=== PATIENT | female | born 1965 | race Hispanic/Latino ===

== ENCOUNTER → 2018-06-27 | Day surgery (SDC) | payer OTHER ==
[~2018-06-27] MED LIST: ASPIRIN 325 MG TAB ONE; ASPIRIN 81 MG CHEW TAB PO ONE; CEFAZOLIN SOD 1 GM VIAL ONE; DEXAMETHASONE SOD PHOS INJ 4 MG/ML VIAL ONE; FENTANYL CITRATE/PF 100MCG/2 ML INJ ONE; HYDROCHLOROTHIA25 MG PO; HYDROMORPHONE 1MG/1ML INJ ONE; KETOROLAC TROMETHAMINE 30 MG/ML VIAL ONE; LABETALOL HCL 20 ML ONE; LIDOCAINE HCL 2% LOCAL INJ 5 ML SDV VIAL INJ ONE; MEPERIDINE HCL INJ 50 MG/ML INJ ONE; MIDAZOLAM HCL 2 MG/2 ML VIAL ONE; MORPHINE SULFATE 2 MG/ML SYR ONE; NITROGLYCERIN 0.4 MG SUBL ONE; ONDANSETRON HCL INJ 2 MG/ML VIAL ONE; PROPOFOL IV EMULSION 10 MG/ML 20 ML VIAL ONE; SEVOFLURANE INHAL SOLN 250 ML PEN BTL ONE
--- NOTE | 2018-06-27 15:11 | Operative Report ---
DATE OF PROCEDURE: June 27, 2018 DIRECTOR OF PHYSIOTHERAPY SERVICES: Tyshawn Sierra PA-C The patient was brought to the operating room for induction of anesthesia. Throughout this case, my PA's assistance was necessary for retraction of soft tissue and positioning of the extremity. This allows for efficient and technically successful execution of the operation and is considered medically necessary. PREOPERATIVE DIAGNOSIS: Right knee lateral meniscal tear. POSTOPERATIVE DIAGNOSIS: Right knee lateral meniscal tear. PROCEDURE: Right knee arthroscopy, partial lateral meniscectomy. INDICATIONS: The patient is a 52-year-old lady who has clinic signs and symptoms consistent with a lateral meniscal tear in her right knee. She has failed conservative management and would like to proceed with arthroscopic intervention. The risks and benefits have been explained. She states she understands and wishes to proceed. DESCRIPTION OF PROCEDURE: The patient was brought to the operating room and placed under general anesthetic. Her right lower extremity was prepped and draped in a sterile manner. A preoperative time out was performed. The extremity had been exsanguinated and a proximal tourniquet was inflated to 300 mmHg. Standard arthroscopy portals were established. The knee was insufflated with sterile saline and systematically inspected. The patellofemoral groove and suprapatellar pouch were unremarkable. The medial compartment was unremarkable. The meniscus was probed on the superior and inferior surface. There was no evidence of a medial meniscal tear. The cruciate ligaments were inspected and noted to be intact. The lateral compartment was inspected. There was a complex tear of the posterior horn of the lateral meniscus. A combination of biting forceps and a mechanical shaver were used to debride the meniscus back to stable tissue. [id number] photographs were taken. The knee was thoroughly irrigated. The arthroscopic instruments were removed. The portal incisions were closed with nylon stitches. A sterile bandage was applied. The patient was extubated and transported to the recovery room in stable condition. There was no blood loss and all needle and sponge counts were correct. Job#: [id number] [place]
[2018-06-27 15:36] LABS: CREATINE KINASE 74 IU/L (29-168)
[2018-06-27 20:06] LABS: CREATINE KINASE 62 IU/L (29-168)
[2018-06-27 20:30] VITALS: BP 148/87
--- NOTE | 2018-06-27 22:41 | Consultation ---
DATE OF CONSULTATION: June 27, 2018 CARDIOLOGY CONSULTATION REFERRING PHYSICIAN: Dr. Luis Manuel Shahid CHIEF COMPLAINT: Chest pain, postoperative. HISTORY OF PRESENT ILLNESS: Ms. Adams is a pleasant 52-year-old woman with history of hypertension, remote history of DVT and PE, status post completed anticoagulation course, who presents for outpatient arthroscopic right knee lateral meniscal repair and partial lateral meniscectomy. Postoperatively, she was noted to have severely uncontrolled hypertension, in which setting she describes chest discomfort radiating to back. Symptoms resolved following initial antihypertensive management and pain control. She has had no recurrent episodes. Her EKG shows sinus rhythm with sinus arrhythmia. Her initial set of cardiac enzymes is negative her echocardiogram reveals preserved ventricular systolic function with left ventricular ejection fraction more than 70% and normal regional wall motion. Second set of cardiac enzymes is pending. She is, currently, symptom free with improved blood pressure to 136/88. Currently, otherwise, symptom free. REVIEW OF SYSTEMS: A 12-system review negative except for as noted above. Denies any shortness of breath, lightheadedness, palpitations or syncope. PAST MEDICAL HISTORY: As per HPI. SOCIAL HISTORY: Denies smoking, alcohol, drugs. FAMILY HISTORY: Noncontributory. PHYSICAL EXAMINATION VITALS: Temperature 97.6, heart rate 65, respiratory rate 20, blood pressure 136/88, O2 sat 100% on 2 L per minute nasal cannula. GENERAL: No acute distress. Alert. NECK: No JVD, no carotid bruits. CHEST: Clear to auscultation. CARDIOVASCULAR: Regular rate and rhythm. Normal S1 and S2. No S3, no S4, no murmurs or rubs. ABDOMEN: Soft, nontender, nondistended. EXTREMITIES: No cyanosis, clubbing or edema. Warm distal extremities. CARDIOVASCULAR MEDICATIONS: Aspirin, nitroglycerin, status post labetalol, p.r.n. morphine. LAB: CK 74, CK-MB 0.7, troponin-I less than 0.001. On telemetry, normal sinus rhythm. ASSESSMENT 1. Postoperative for arthroscopic and right meniscal repair. 2. Chest pain in setting of hypertensive urgency, now resolved. 3. Uncontrolled hypertension. RECOMMENDATIONS: Obtain 2nd set of cardiac enzymes. If negative and patient remains symptom free and with normal blood pressure, okay to discharge with outpatient followup, on beta-tara and aspirin. Advised to follow up within 1 week with primary care physician and outpatient followup with cardiology for further workup. Alarm signs discussed for patient to call 911, will return to nearest emergent department if condition worsens/recurs. Patient's family members agreeable with plan. Job#: [id number]
== END | disposition home or self-care (01) ==
LOC: OR 10:01
PROVIDERS: ATTEND Specialist
DX: S83.271A Complex tear of lateral meniscus, current injury, right knee, initial encounter (principal); S83.261A Peripheral tear of lateral meniscus, current injury, right knee, initial encounter; I34.0 Nonrheumatic mitral (valve) insufficiency; I07.1 Rheumatic tricuspid insufficiency; R07.9 Chest pain, unspecified; I49.9 Cardiac arrhythmia, unspecified; I16.0 Hypertensive urgency; I45.10 Unspecified right bundle-branch block; F41.9 Anxiety disorder, unspecified; W18.39XA Other fall on same level, initial encounter; Y93.41 Activity, dancing; Y99.8 Other external cause status; Z01.810 Encounter for preprocedural cardiovascular examination; Z86.711 Personal history of pulmonary embolism; Z86.718 Personal history of other venous thrombosis and embolism
CPT/HCPCS: 29881; 36415; 82550; 82553; 84484; 93005 ×2; 93306; J0690; J1100; J1170; J1885; J2001; J2175; J2250; J2270; J2405; J3490